=== PATIENT | male | born 1960 | race Caucasian/White ===

== ENCOUNTER 2024-10-25 00:28 | Inpatient (IN) | payer MEDICAID ==
[~2024-10-25] VITALS: Ht 175.3 cm; Wt 74.5 kg
[2024-10-25 00:41] VITALS: O2SAT 99
[2024-10-25 01:06] LABS: BASOPHILS % 0.3 % (0.0-2.0); EOSINOPHILS % 0.2 % (0.0-5.0); HEMATOCRIT. 45.3 % (42.0-52.0); HEMOGLOBIN. 15.5 g/dL (14.0-18.0); LYMPHOCYTES % 11.8 % (20.0-50.0); MEAN CORPUSCULAR HEMOGLOBIN 31.4 pg (28.0-32.0); MEAN CORPUSCULAR HGB CONC 34.2 g/dL (31.0-37.0); MEAN CORPUSCULAR VOLUME 91.8 fL (80.0-94.0); MEAN PLATELET VOLUME 9.1 fl (7.4-10.4); MONOCYTES % 4.5 % (2.0-8.0); NEUTROPHILS % 83.2 % (40.0-76.0); PLATELET 245 x1000/uL (130-400); RED BLOOD CELL COUNT 4.93 mill/uL (4.7-6.1); WHITE BLOOD COUNT 11.9 x1000/uL (4.5-11.0)
[2024-10-25 01:14] LABS: POTASSIUM 3.5 mEq/L (3.5-5.1)
[2024-10-25 01:15] LABS: CALCIUM 10.1 mg/dL (8.7-10.4)
[2024-10-25 01:20] LABS: CREATININE 1.3 mg/dL (0.6-1.3)
[2024-10-25] MEDS: ACETAMINOPHEN 500MG TABLET PO ONE (03:35)
[2024-10-25] MEDS: MAGNESIUM/ALUMINUM HYDROXIDE/SIMETHICONE 30ML UDC PO ONE (03:51)
[2024-10-25] MEDS: ONDANSETRON HCL 4MG TABLET PO ONE (03:51)
[2024-10-25] MEDS: FAMOTIDINE 20MG TABLET PO ONE (03:51)
[2024-10-25 04:04] LABS: ALANINE AMINOTRANSFERASE 19 IU/L (10-49); ALBUMIN 5.1 g/dL (3.2-4.8); ASPARTATE AMINOTRANSFERASE 21 IU/L (<34); BILIRUBIN DIRECT 0.1 mg/dL (<=3.0); BILIRUBIN TOTAL 0.5 mg/dL (0.1-1.0); PROTEIN TOTAL 7.7 g/dL (6.0-8.3)
[2024-10-25 05:16] LABS: GLUCOSE URINE NEGATIVE (NEGATIVE); KETONES URINE TRACE (NEGATIVE)
[2024-10-25 05:42] LABS: CLARITY URINE CLEAR (CLEAR); COLOR URINE YELLOW (YELLOW); SPECIFIC GRAVITY URINE 1.028 (1.005-1.030)
[2024-10-25 05:43] LABS: NITRITE URINE NEGATIVE (NEGATIVE); OCCULT BLOOD URINE NEGATIVE (NEGATIVE); PROTEIN URINE 2+ (NEGATIVE)
[2024-10-25 05:44] LABS: LEUKOCYTE ESTERASE URINE TRACE (NEGATIVE)
[2024-10-25 06:31] LABS: WBC URINE 0-2 /hpf (0-2)
[2024-10-25 06:32] LABS: RBC URINE 0-2 /hpf (0-2)
[2024-10-25 06:33] LABS: BACTERIA URINE NONE SEEN; SQUAMOUS EPITHELIAL CELL URINE NONE SEEN /lpf (RARE/1+)
[2024-10-25 08:00] VITALS: BP 126/82; PULSE 58; TEMP 37.2; O2SAT 95
[2024-10-25 08:21] VITALS: BP 126/72; PULSE 58; RESP 18; TEMP 37.2
[2024-10-25] MEDS ORDERED: ONDANSETRON HCL 4MG/2ML INJ IV PRN (11:15)
[2024-10-25] MEDS ORDERED: DOCUSATE SODIUM 100MG CAPSULE PO PRN (11:15)
[2024-10-25] MEDS ORDERED: CLONIDINE 0.1MG TABLET PO PRN (11:15)
[2024-10-25] MEDS ORDERED: ACETAMINOPHEN 325MG TABLET PO PRN ×2 (11:15)
[2024-10-25] MEDS ORDERED: IPRATROPIUM/ALBUTEROL 0.5-3(2.5)MG/3ML NEB HHN PRN (11:15)
[2024-10-25] MEDS: SODIUM CHLORIDE 0.9% 1,000 ML IV SCH (11:34)
[2024-10-25 11:59] VITALS: BP 101/67; PULSE 49; RESP 20; TEMP 36.3; O2SAT 96
[2024-10-25 16:00] VITALS: BP 112/86; PULSE 54; RESP 22; TEMP 36.2; O2SAT 98
[2024-10-25 20:00] VITALS: BP 123/92; PULSE 61; RESP 18; TEMP 36.4; O2SAT 98
[2024-10-26] VITALS: BP 103/74; PULSE 65; RESP 18; TEMP 36.7; O2SAT 99
[2024-10-26 02:14] LABS: *AMPHETAMINES SCREEN URINE NEGATIVE (NEGATIVE); *BARBITURATES SCREEN URINE NEGATIVE (NEGATIVE); *BENZODIAZEPINES SCREEN URINE NEGATIVE (NEGATIVE); *COCAINE SCREEN URINE NEGATIVE (NEGATIVE)
[2024-10-26 02:15] LABS: CANNABINOID URINE SCREEN NEGATIVE (NEGATIVE); ECSTASY MDMA SCREEN URINE NEGATIVE (NEGATIVE); METHADONE URINE SCREEN NEGATIVE (NEGATIVE); OPIATES URINE SCREEN NEGATIVE (NEGATIVE); PHENCYCLIDINE URINE SCREEN NEGATIVE (NEGATIVE)
[2024-10-26 04:00] VITALS: BP 90/61; PULSE 70; RESP 17; TEMP 36.3; O2SAT 99
[2024-10-26 06:24] LABS: BASOPHILS % 0.5 % (0.0-2.0); EOSINOPHILS % 2.5 % (0.0-5.0); HEMATOCRIT. 39.8 % (42.0-52.0); HEMOGLOBIN. 13.6 g/dL (14.0-18.0); LYMPHOCYTES % 32.8 % (20.0-50.0); MEAN CORPUSCULAR HEMOGLOBIN 31.6 pg (28.0-32.0); MEAN CORPUSCULAR HGB CONC 34.3 g/dL (31.0-37.0); MEAN CORPUSCULAR VOLUME 92.2 fL (80.0-94.0); MEAN PLATELET VOLUME 9.6 fl (7.4-10.4); MONOCYTES % 9.6 % (2.0-8.0); NEUTROPHILS % 54.6 % (40.0-76.0); PLATELET 178 x1000/uL (130-400); RED BLOOD CELL COUNT 4.31 mill/uL (4.7-6.1); RED CELL DISTRIBUTION WIDTH 14.1 % (11.6-14.6); WHITE BLOOD COUNT 6.3 x1000/uL (4.5-11.0)
[2024-10-26 06:28] LABS: CHLORIDE 108 mEq/L (98-107); POTASSIUM 3.6 mEq/L (3.5-5.1); SODIUM 143 mEq/L (136-145)
[2024-10-26 06:29] LABS: CALCIUM 8.3 mg/dL (8.7-10.4); CARBON DIOXIDE 28 mEq/L (21-32)
[2024-10-26 06:34] LABS: CREATININE 1.2 mg/dL (0.6-1.3); GLUCOSE 92 mg/dL (70-105)
[2024-10-26 06:35] LABS: ALANINE AMINOTRANSFERASE 15 IU/L (10-49); ALBUMIN 3.6 g/dL (3.2-4.8); ASPARTATE AMINOTRANSFERASE 19 IU/L (<34); UREA NITROGEN BLOOD 17 mg/dL (9-23)
[2024-10-26 06:37] LABS: BILIRUBIN TOTAL 0.8 mg/dL (0.1-1.0)
[2024-10-26 07:26] LABS: PROTEIN TOTAL 5.5 g/dL (6.0-8.3)
[2024-10-26 08:00] VITALS: BP 95/63; PULSE 49; RESP 18; TEMP 36.5; O2SAT 98
[2024-10-26 12:00] VITALS: BP 100/69; PULSE 50; RESP 18; TEMP 36.3; O2SAT 96
[2024-10-26 16:00] VITALS: BP 105/69; PULSE 56; RESP 18; TEMP 36.1; O2SAT 97
== END 2024-10-26 20:10 | disposition home or self-care (01) | DRG 247 ==
LOC: ER 00:28 → EDBEDREQTM 05:45 → EDBEDREQ 05:45 → ENRESERV 07:39 → 7EST 07:52
PROVIDERS: ADMIT Internal Medicine; ATTEND Internal Medicine
DX: K56.609 Unspecified intestinal obstruction, unspecified as to partial versus complete obstruction (principal); F17.210 Nicotine dependence, cigarettes, uncomplicated
CPT/HCPCS: 36415; 74018; 74176; 80048; 80053; 80076; 80305; 81003; 85025; 93005; 99285; J7030; Q0162